=== PATIENT | female | born 1990 | race Caucasian/White ===

== ENCOUNTER 2018-07-13 17:36 | Emergency (ER) | payer BC, OTHER, SELFPAY ==
[2018-07-13 18:10] LABS: Bilirubin Negative (Negative); Blood, Urine Negative (Negative); Clarity Clear (Clear); Glucose, Urine (Dipstick) Negative (Negative); Leukocyte Negative (Negative); Nitrite Negative (Negative); Protein, Urine (Dipstick) Negative (Neg-Trace); Urobilinogen 0.2 mg/dL (0.2-1.0); pH, Urine 8.5 (5.0-9.0)
[2018-07-13 18:11] LABS: Pregu Control Background? CLEAR/WHITE (CLR/WHITE); Pregu Control Bar Appear? YES (CONTROL BAR)
[2018-07-13 18:13] LABS: Pregnancy Test - Urine (BHCG) Negative (Negative)
[2018-07-13] MEDS ORDERED: Lidocaine 1% MPF 2 ML VIAL ONE (18:24)
[2018-07-13] MEDS ORDERED: cefTRIAXone\\ROCEPHIN 250 MG VIAL ONE (18:24)
== END 2018-07-13 18:50 | disposition home or self-care (01) ==
LOC: SCSER 17:36
DX: R10.2 Pelvic and perineal pain (principal); F17.210 Nicotine dependence, cigarettes, uncomplicated
CPT/HCPCS: 81003; 81025; 87480; 87491; 87510; 87591; 87660; 96372; J0696